=== PATIENT | female | born 1970 | race Caucasian/White ===

== ENCOUNTER 2018-05-03 11:00 | Emergency (ER) | payer OTHER ==
[~2018-05-03] VITALS: Ht 160 cm; Wt 72.0 kg
[2018-05-03 12:09] VITALS: BP 142/67
== END 2018-05-03 12:12 | disposition home or self-care (01) ==
LOC: ER 11:01
DX: T50.905A Adverse effect of unspecified drugs, medicaments and biological substances, initial encounter (principal); F15.90 Other stimulant use, unspecified, uncomplicated; Z88.0 Allergy status to penicillin; Z88.8 Allergy status to other drugs, medicaments and biological substances; Y92.89 Other specified places as the place of occurrence of the external cause
CPT/HCPCS: 93005; 99283

== ENCOUNTER 2023-10-20 05:54 | Emergency (ER) | payer SELFPAY ==
[~2023-10-20] VITALS: Ht 160 cm; Wt 97.7 kg
[2023-10-20 06:00] VITALS: TEMP 98.3
[2023-10-20] MEDS: normal saline 1000ml 1,000 ML IV ONE (07:17)
[2023-10-20] MEDS: normal saline 1000ML IV soln IVB ONE (07:17)
[2023-10-20] MEDS: aspirin 81mg tab.chew PO ONE (07:17)
[2023-10-20 07:24] LABS: URINE HCG NEGATIVE (NEG)
[2023-10-20 07:26] LABS: BILIRUBIN,URINE SMALL (Neg); CLARITY,URINE CLOUDY (Clear); COLOR,URINE RED (Yellow); GLUCOSE, URINE NEGATIVE (Neg); KETONES,URINE >=80 mg/dl (Neg); LEUKOCYTE ESTERASE ,URINE TRACE (Neg); OCCULT BLOOD,URINE LARGE (Neg); PROTEIN,URINE 100 mg/dl (Neg)
[2023-10-20 07:32] LABS: BASOPHILS % (AUTO) 0.2 % (0-1); EOSINOPHILS % (AUTO) 0.1 % (0-6); HEMATOCRIT 42.4 % (35.0-45.0); HEMOGLOBIN 13.9 g/dl (12.0-16.0); LYMPHOCYTES # (AUTO) 1.1 X10'3 (1.1-4.8); LYMPHOCYTES % (AUTO) 9.9 % (21-51); MEAN CORPUSCULAR HEMOGLOBIN 29.2 PG (27.0-31.0); MEAN CORPUSCULAR HGB CONC 32.9 g/dL (33.0-36.5); MEAN PLATELET VOLUME 9.4 FL (7.4-10.4); MONOCYTES # (AUTO) 0.6 X10'3 (0-0.9); MONOCYTES % (AUTO) 5.5 % (2-12); NEUTROPHILS # (AUTO) 9.6 X10'3 (1.8-7.7); NEUTROPHILS % (AUTO) 84.3 % (42-75); PLATELET COUNT 287 X10'3 (140-440); RED BLOOD COUNT 4.76 X10'6 (4.20-5.60); RED CELL DISTRIBUTION WIDTH 15.9 % (11.5-14.5); WHITE BLOOD COUNT 11.4 X10'3 (4.5-11.0)
[2023-10-20 07:34] LABS: APTT 24 SECONDS (22-32); PROTHROMBIN TIME 11.2 SECONDS (9.0-12.0)
[2023-10-20 07:39] LABS: ALANINE AMINOTRANSFERASE 26 U/L (12-78); ALBUMIN 3.8 G/DL (3.4-5.0); ALBUMIN/GLOBULIN RATIO 0.9 (1.1-1.5); ALKALINE PHOSPHATASE 103 IU/L (46-116); ANION GAP 14 (8-16); ASPARTATE AMINO TRANSFERASE 17 U/L (10-37); BILIRUBIN,TOTAL 0.9 MG/DL (0.1-1.0); BLOOD UREA NITROGEN 8 MG/DL (7-18); BUN/CREATININE RATIO 8.3 (10.0-20.0); CHLORIDE 104 MMOL/L (99-107); CREATININE 0.96 MG/DL (0.40-0.90); GLUCOSE 122 MG/DL (70-104); POTASSIUM 3.5 MMOL/L (3.5-5.1); SODIUM 140 MMOL/L (135-145); TOTAL CARBON DIOXIDE 22.3 MMOL/L (24-32); TOTAL PROTEIN 8.1 G/DL (6.4-8.2); eCRCL 57 ML/MIN; eGFR 61 ML/MIN
[2023-10-20 07:45] LABS: UA COLLECTION TYPE NON-SPECIFIED
[2023-10-20 07:46] LABS: NITRITES, URINE NEGATIVE (Neg)
[2023-10-20 07:47] LABS: BACTERIA,URINE 1+ /HPF (Neg); LIPASE 12 U/L (16-77); MUCUS STRANDS FEW /LPF (Neg); PRO BRAIN NATRIURETIC PEPTIDE 85 PG/ML (0-125); RBC,URINE TNTC /HPF (0-2); SQUAMOUS EPITHELIAL CELL,UR FEW /LPF (FEW); TRANSITIONAL EPI CELLS,URINE FEW /HPF
[2023-10-20 08:29] LABS: URINE AMPHETAMINE SCREEN NEGATIVE (Neg); URINE BARBITUATE SCREEN NEGATIVE (Neg); URINE BENZODIAZEPINES SCREEN NEGATIVE (Neg); URINE CANNABINOID SCREEN POSITIVE (Neg); URINE COCAINE SCREEN NEGATIVE (Neg); URINE METHADONE SCREEN NEGATIVE (Neg); URINE OPIATE SCREEN NEGATIVE (Neg); URINE PHENCYCLIDINE SCREEN NEGATIVE (Neg)
[2023-10-20] MEDS: LORazepam 1 MG tablet PO ONE (10:50)
[2023-10-20 10:51] VITALS: BP 139/55; PULSE 80; RESP 18; O2SAT 97
== END 2023-10-20 10:59 | disposition home or self-care (01) ==
LOC: ER 05:55
DX: F41.9 Anxiety disorder, unspecified (principal); R19.7 Diarrhea, unspecified; R11.0 Nausea; I10 Essential (primary) hypertension; F15.90 Other stimulant use, unspecified, uncomplicated; Z88.0 Allergy status to penicillin; Z59.00 Homelessness unspecified
CPT/HCPCS: 36415; 80053; 80305; 81001; 81025; 83690; 83880; 84484; 85025; 85610; 85730; 87088; 93005; 96360; 99285; J7030